=== PATIENT | male | born 1975 | race Caucasian/White ===

== ENCOUNTER 2020-07-05 12:22 | Inpatient (IN) | payer OTHER ==
[2020-07-05 13:08] VITALS: BMI 21.2
[2020-07-05] MEDS ORDERED: P-EPHED 60MG/TRIPROLIDI 2.5MG TABLET PO PRN (17:49)
[2020-07-05] MEDS ORDERED: MAGNESIUM CITRATE 300 ML BOTTLE PO PRN (17:49)
[2020-07-05] MEDS ORDERED: MENTHOL/PHENOL 1 EACH UD MM PRN (17:49)
[2020-07-05] MEDS ORDERED: MAG HYDROX/AL HYDROX/SIMETH 30 ML UNIT-DOSE CUP PO PRN (17:49)
[2020-07-05] MEDS ORDERED: NICOTINE POLACRILEX 2 MG GUM BUC PRN (17:49)
[2020-07-05] MEDS ORDERED: METHOCARBAMOL 500 MG TABLET PO PRN (17:49)
[2020-07-05] MEDS ORDERED: BISMUTH SUBSALICYLATE 524 MG/30 ML UD PO PRN (17:49)
[2020-07-05] MEDS ORDERED: MAGNESIUM HYDROX 2400MG/30ML ORAL SUSPENSION 30 ML CUP PO PRN (17:49)
[2020-07-05] MEDS ORDERED: ACETAMINOPHEN 325 MG TABLET (FP) PO PRN ×2 (17:49)
[2020-07-05] MEDS ORDERED: IBUPROFEN 400 MG TABLET (FP) PO PRN (17:49)
[2020-07-05] MEDS ORDERED: cloNIDine HCL 0.1 MG TABLET PO PRN (17:51)
[2020-07-05] MEDS ORDERED: METHADONE HCL 10 MG TABLET (FOR DETOX USE ONLY) PO ONE (18:45)
[2020-07-05] MEDS ORDERED: METOPROLOL TARTRATE 50 MG TABLET (FP) PO ONE (19:20)
[2020-07-05] MEDS ORDERED: diphenhydrAMINE HCL 25 MG CAPSULE (FP) PO ONE (19:36)
[2020-07-05] MEDS: LABETALOL HCL 200 MG TABLET (FP) PO SCH (22:40)
[2020-07-05] MEDS: MYCOPHENOLATE MOFETIL 500 MG TABLET PO SCH (22:40)
[2020-07-05] MEDS: MELATONIN 5 MG TABLETS PO SCH (22:40)
[2020-07-05] MEDS: THIAMINE HCL 100 MG TABLET (FP) PO SCH (22:40)
[2020-07-06] MEDS ORDERED: cloNIDine HCL 0.1 MG TABLET PO ONE (07:11)
[2020-07-06] MEDS ORDERED: METHADONE HCL 5 MG TABLET (FOR DETOX USE ONLY) ONE (08:58)
[2020-07-06] MEDS ORDERED: METHADONE HCL 10 MG TABLET (FOR DETOX USE ONLY) ONE (08:58)
[2020-07-06] MEDS ORDERED: METHADONE (DETOX) 20 MG, METHADONE (DETOX) 5 MG PO ONE (10:00)
[2020-07-06] MEDS: PRENATAL VITAMINS W/ FOLIC ACID TABLET (FP) PO SCH (10:17)
[2020-07-06] MEDS: LABETALOL HCL 200 MG TABLET (FP) PO SCH ×2 (10:18→21:03)
[2020-07-06] MEDS: MYCOPHENOLATE MOFETIL 500 MG TABLET PO SCH ×2 (10:18→21:04)
[2020-07-06] MEDS: NICOTINE 21 MG/24 HOURS TOPICAL PATCH TD SCH (10:21)
[2020-07-06 11:36] LABS: HEMATOCRIT 40.3 % (35.4-49); HEMOGLOBIN 13.1 GM/dL (11.7-16.9); MCH 28.1 pg (25.7-33.7); MCHC 32.5 g/dl (32.0-35.9); MEAN CELL VOLUME 86.5 fl (80-96); MEAN PLT VOLUME 9.9 fl (7.5-11.1); PLATELET COUNT 212 K/MM3 (134-434); RBC 4.65 M/mm3 (4.00-5.60); RDW 15.4 % (11.9-15.9); WHITE BLOOD COUNT 6.2 K/mm3 (4.0-10.0)
[2020-07-06 11:40] LABS: POTASSIUM 4.2 mmol/L (3.5-5.1)
[2020-07-06 11:53] LABS: CALCIUM 8.7 mg/dL (8.5-10.1)
[2020-07-06 11:54] LABS: ALBUMIN 3.5 g/dl (3.4-5.0); BLOOD UREA NITROGEN 19.8 mg/dL (7-18)
[2020-07-06 11:58] LABS: BILIRUBIN,TOTAL 0.8 mg/dL (0.2-1); TOT PROT 6.9 g/dl (6.4-8.2)
[2020-07-06] MEDS ORDERED: diphenhydrAMINE HCL 25 MG CAPSULE (FP) PO ONE (20:48)
[2020-07-06] MEDS: THIAMINE HCL 100 MG TABLET (FP) PO SCH (21:04)
[2020-07-06] MEDS: MELATONIN 5 MG TABLETS PO SCH (21:04)
[2020-07-07] MEDS ORDERED: METHADONE HCL 10 MG TABLET (FOR DETOX USE ONLY) PO ONE (10:00)
[2020-07-07] MEDS: MYCOPHENOLATE MOFETIL 500 MG TABLET PO SCH (10:17)
[2020-07-07] MEDS: PRENATAL VITAMINS W/ FOLIC ACID TABLET (FP) PO SCH (10:17)
[2020-07-07] MEDS: LABETALOL HCL 200 MG TABLET (FP) PO SCH (10:17)
[2020-07-07] MEDS: NICOTINE 21 MG/24 HOURS TOPICAL PATCH TD SCH (10:20)
[2020-07-07] MEDS ORDERED: diazePAM 5 MG TABLET PO PRN (11:15)
[2020-07-07] MEDS ORDERED: MELATONIN 5 MG TABLETS PO SCH (11:19)
[2020-07-07 17:29] VITALS: BP 114/75; PULSE 60; TEMP 98.7
[2020-07-08] MEDS ORDERED: METHADONE (DETOX) 10 MG, METHADONE (DETOX) 5 MG PO ONE (10:00)
[2020-07-09] MEDS ORDERED: METHADONE HCL 10 MG TABLET (FOR DETOX USE ONLY) PO ONE (10:00)
[2020-07-10] MEDS ORDERED: METHADONE HCL 5 MG TABLET (FOR DETOX USE ONLY) PO ONE (06:00)
== END 2020-07-07 19:26 | disposition left against medical advice (07) | DRG 894 ==
LOC: YASAS 12:22 → Y3N 18:14
PROVIDERS: ADMIT Allergy & Immunology; ATTEND Allergy & Immunology
PROC: HZ2ZZZZ Detoxification Services for Substance Abuse Treatment (ICD-10-PCS; principal; 2020-07-05)
DX: F11.23 Opioid dependence with withdrawal (principal); K62.5 Hemorrhage of anus and rectum; F12.10 Cannabis abuse, uncomplicated; F17.210 Nicotine dependence, cigarettes, uncomplicated; I10 Essential (primary) hypertension; M32.9 Systemic lupus erythematosus, unspecified; N18.1 Chronic kidney disease, stage 1; Z98.890 Other specified postprocedural states; Z91.013 Allergy to seafood
CPT/HCPCS: 36415; 80053; 85027; 86780; C9803; J0735; J7517; U0003

== ENCOUNTER 2020-10-01 19:33 | Inpatient (IN) | payer OTHER ==
[2020-10-01 20:17] VITALS: BMI 20.2
[2020-10-02] MEDS ORDERED: BISMUTH SUBSALICYLATE 524 MG/30 ML UD PO PRN (00:35)
[2020-10-02] MEDS ORDERED: MAGNESIUM HYDROX 2400MG/30ML ORAL SUSPENSION 30 ML CUP PO PRN (00:35)
[2020-10-02] MEDS ORDERED: ONDANSETRON *ODT* 4 MG TABLET SL PRN (00:35)
[2020-10-02] MEDS ORDERED: METHADONE HCL 10 MG TABLET (FOR DETOX USE ONLY) PO ONE (00:35)
[2020-10-02] MEDS ORDERED: MENTHOL/PHENOL 1 EACH UD MM PRN (00:35)
[2020-10-02] MEDS ORDERED: MAG HYDROX/AL HYDROX/SIMETH 30 ML UNIT-DOSE CUP PO PRN (00:35)
[2020-10-02] MEDS ORDERED: ACETAMINOPHEN 325 MG TABLET (FP) PO PRN ×2 (00:35)
[2020-10-02] MEDS ORDERED: NICOTINE POLACRILEX 2 MG GUM BUC PRN (00:35)
[2020-10-02] MEDS ORDERED: MAGNESIUM CITRATE 300 ML BOTTLE PO PRN (00:35)
[2020-10-02] MEDS ORDERED: cloNIDine HCL 0.1 MG TABLET PO PRN (00:35)
[2020-10-02] MEDS ORDERED: IBUPROFEN 400 MG TABLET (FP) PO PRN (00:35)
[2020-10-02] MEDS ORDERED: METHADONE HCL 10 MG TABLET (FOR DETOX USE ONLY) ONE (04:27)
[2020-10-02 10:57] LABS: HEMATOCRIT 37.3 % (35.4-49); HEMOGLOBIN 12.4 GM/dL (11.7-16.9); MCH 29.2 pg (25.7-33.7); MCHC 33.1 g/dl (32.0-35.9); MEAN PLT VOLUME 9.7 fl (7.5-11.1); PLATELET COUNT 156 K/MM3 (134-434); RBC 4.24 M/mm3 (4.00-5.60); RDW 14.7 % (11.9-15.9); WHITE BLOOD COUNT 7.1 K/mm3 (4.0-10.0)
[2020-10-02 11:12] LABS: CALCIUM 8.8 mg/dL (8.5-10.1)
[2020-10-02 11:13] LABS: ALBUMIN 3.2 g/dl (3.4-5.0); BLOOD UREA NITROGEN 24.3 mg/dL (7-18)
[2020-10-02 11:16] LABS: CREATININE 1.2 mg/dL (0.55-1.3)
[2020-10-02 11:18] LABS: BILIRUBIN,TOTAL 0.3 mg/dL (0.2-1); TOT PROT 6.3 g/dl (6.4-8.2)
[2020-10-02] MEDS: METHOCARBAMOL 500 MG TABLET PO PRN ×2 (12:49→23:18)
[2020-10-02] MEDS: PRENATAL VITAMINS W/ FOLIC ACID TABLET (FP) PO SCH (12:49)
[2020-10-02] MEDS: NICOTINE 21 MG/24 HOURS TOPICAL PATCH TD SCH (12:50)
[2020-10-02] MEDS ORDERED: IBUPROFEN 600 MG TABLET (FP) PO PRN (15:08)
[2020-10-02] MEDS: MELATONIN 5 MG TABLETS PO SCH (23:16)
[2020-10-02] MEDS: THIAMINE HCL 100 MG TABLET (FP) PO SCH (23:16)
[2020-10-02] MEDS: LABETALOL HCL 100 MG TABLET (FP) PO SCH (23:16)
[2020-10-03] MEDS ORDERED: METHADONE HCL 5 MG TABLET (FOR DETOX USE ONLY) ONE (08:59)
[2020-10-03] MEDS ORDERED: METHADONE HCL 10 MG TABLET (FOR DETOX USE ONLY) ONE (08:59)
[2020-10-03] MEDS: PRENATAL VITAMINS W/ FOLIC ACID TABLET (FP) PO SCH (09:21)
[2020-10-03] MEDS: LABETALOL HCL 100 MG TABLET (FP) PO SCH (09:21)
[2020-10-03] MEDS: NICOTINE 21 MG/24 HOURS TOPICAL PATCH TD SCH (09:22)
[2020-10-03] MEDS ORDERED: METHADONE (DETOX) 20 MG, METHADONE (DETOX) 5 MG PO ONE (10:00)
[2020-10-03] MEDS ORDERED: MYCOPHENOLATE MOFETIL 500 MG TABLET PO SCH (14:00)
[2020-10-03] MEDS: LIDOCAINE 5% TOPICAL PATCH TP SCH (14:12)
[2020-10-03] MEDS: METHOCARBAMOL 500 MG TABLET PO PRN ×2 (16:35→22:19)
[2020-10-03] MEDS: MELATONIN 5 MG TABLETS PO SCH (22:18)
[2020-10-03] MEDS: THIAMINE HCL 100 MG TABLET (FP) PO SCH (22:18)
[2020-10-03] MEDS: LABETALOL HCL 200 MG TABLET (FP) PO SCH (22:18)
[2020-10-03] MEDS: LIDOCAINE PATCH REMOVAL MC SCH (23:02)
[2020-10-04] MEDS ORDERED: METHADONE HCL 10 MG TABLET (FOR DETOX USE ONLY) PO ONE (10:00)
[2020-10-04] MEDS: LIDOCAINE 5% TOPICAL PATCH TP SCH (10:32)
[2020-10-04] MEDS: NICOTINE 21 MG/24 HOURS TOPICAL PATCH TD SCH (10:33)
[2020-10-04] MEDS: PRENATAL VITAMINS W/ FOLIC ACID TABLET (FP) PO SCH (10:33)
[2020-10-04] MEDS: LABETALOL HCL 200 MG TABLET (FP) PO SCH ×2 (10:33→22:17)
[2020-10-04] MEDS: METHOCARBAMOL 500 MG TABLET PO PRN ×2 (10:34→22:17)
[2020-10-04] MEDS: LIDOCAINE PATCH REMOVAL MC SCH (22:15)
[2020-10-04] MEDS: THIAMINE HCL 100 MG TABLET (FP) PO SCH (22:16)
[2020-10-04] MEDS: MELATONIN 5 MG TABLETS PO SCH (22:17)
[2020-10-05] MEDS ORDERED: METHADONE HCL 5 MG TABLET (FOR DETOX USE ONLY) ONE (08:58)
[2020-10-05] MEDS ORDERED: METHADONE HCL 10 MG TABLET (FOR DETOX USE ONLY) ONE (08:59)
[2020-10-05] MEDS ORDERED: METHADONE HCL 10 MG TABLET (FOR DETOX USE ONLY) PO ONE (09:38)
[2020-10-05] MEDS ORDERED: METHADONE (DETOX) 10 MG, METHADONE (DETOX) 5 MG PO ONE (10:00)
[2020-10-05 10:07] LABS: SARS-CoV-2 NAA Not Detected (Not Detected)
[2020-10-05] MEDS: PRENATAL VITAMINS W/ FOLIC ACID TABLET (FP) PO SCH (10:19)
[2020-10-05] MEDS: LABETALOL HCL 200 MG TABLET (FP) PO SCH ×2 (10:19→22:27)
[2020-10-05] MEDS: NICOTINE 21 MG/24 HOURS TOPICAL PATCH TD SCH (10:20)
[2020-10-05] MEDS: LIDOCAINE 5% TOPICAL PATCH TP SCH (10:21)
[2020-10-05] MEDS: METHOCARBAMOL 500 MG TABLET PO PRN (17:43)
[2020-10-05] MEDS: MELATONIN 5 MG TABLETS PO SCH (22:27)
[2020-10-05] MEDS: LIDOCAINE PATCH REMOVAL MC SCH (22:27)
[2020-10-05] MEDS: THIAMINE HCL 100 MG TABLET (FP) PO SCH (22:27)
[2020-10-06] MEDS: METHADONE HCL 5 MG TABLET (FOR DETOX USE ONLY) PO ONE ×2 (06:30→06:35)
[2020-10-06 06:32] VITALS: PULSE 52; TEMP 98
[2020-10-06 08:05] VITALS: BP 144/91
[2020-10-06] MEDS ORDERED: METHADONE HCL 10 MG TABLET (FOR DETOX USE ONLY) PO ONE (10:00)
[2020-10-07] MEDS ORDERED: METHADONE HCL 5 MG TABLET (FOR DETOX USE ONLY) PO ONE (06:00)
== END 2020-10-06 09:39 | disposition home or self-care (01) | DRG 897 ==
LOC: YASAS 19:33 → Y6N 10-02 12:18
PROVIDERS: ADMIT Allergy & Immunology; ATTEND Allergy & Immunology
PROC: HZ2ZZZZ Detoxification Services for Substance Abuse Treatment (ICD-10-PCS; principal; 2020-10-02)
DX: F11.23 Opioid dependence with withdrawal (principal); F17.210 Nicotine dependence, cigarettes, uncomplicated; I10 Essential (primary) hypertension; M32.9 Systemic lupus erythematosus, unspecified; M54.5 Low back pain; G89.29 Other chronic pain
CPT/HCPCS: 36415; 80053; 84520; 85027; 86780; 93005; 93010; C9803; J0735; U0003; U0005

== ENCOUNTER 2020-12-11 12:55 | Inpatient (IN) | payer OTHER ==
[2020-12-11 04:20] VITALS: BMI 21.4
[~2020-12-11 12:55] MED LIST: cloNIDine HCL 0.1 MG TABLET ONE; cloNIDine HCL 0.1 MG TABLET PO ONE
[2020-12-11] MEDS ORDERED: NICOTINE POLACRILEX 2 MG GUM BUC PRN (17:59)
[2020-12-11] MEDS ORDERED: BISMUTH SUBSALICYLATE 524 MG/30 ML PO PRN (17:59)
[2020-12-11] MEDS ORDERED: ONDANSETRON *ODT* 4 MG TABLET SL PRN (17:59)
[2020-12-11] MEDS ORDERED: cloNIDine HCL 0.1 MG TABLET PO PRN (17:59)
[2020-12-11] MEDS ORDERED: ACETAMINOPHEN 325 MG TABLET (FP) PO PRN ×2 (17:59)
[2020-12-11] MEDS ORDERED: MENTHOL/PHENOL 1 EACH UD MM PRN (17:59)
[2020-12-11] MEDS ORDERED: MAG HYDROX/AL HYDROX/SIMETH 30 ML UNIT-DOSE CUP PO PRN (17:59)
[2020-12-11] MEDS ORDERED: IBUPROFEN 400 MG TABLET (FP) PO PRN (17:59)
[2020-12-11] MEDS ORDERED: MAGNESIUM HYDROX 2400MG/30ML ORAL SUSPENSION 30 ML CUP PO PRN (17:59)
[2020-12-11] MEDS ORDERED: MAGNESIUM CITRATE 300 ML BOTTLE PO PRN (17:59)
[2020-12-11] MEDS ORDERED: METHOCARBAMOL 500 MG TABLET PO PRN (17:59)
[2020-12-11] MEDS ORDERED: METHADONE HCL 10 MG TABLET (FOR DETOX USE ONLY) PO ONE (19:00)
[2020-12-11] MEDS: NICOTINE 21 MG/24 HOURS TOPICAL PATCH TD SCH (19:24)
[2020-12-11] MEDS: hydrOXYzine PAMOATE 25 MG CAPSULE (FP) PO SCH ×2 (19:25→23:20)
[2020-12-11] MEDS: diazePAM 5 MG TABLET PO PRN (19:28)
[2020-12-11] MEDS: THIAMINE HCL 100 MG TABLET (FP) PO SCH (23:19)
[2020-12-11] MEDS: SULFAMETHOXAZOLE/TRIMETHOPRIM 800MG/160MG D.S. TABLET PO SCH (23:19)
[2020-12-11] MEDS: MELATONIN 5 MG TABLETS PO SCH (23:20)
[2020-12-12] MEDS: hydrOXYzine PAMOATE 25 MG CAPSULE (FP) PO SCH ×5 (07:11→21:38)
[2020-12-12] MEDS ORDERED: METHADONE HCL 10 MG TABLET (FOR DETOX USE ONLY) ONE (09:56)
[2020-12-12] MEDS ORDERED: METHADONE HCL 5 MG TABLET (FOR DETOX USE ONLY) ONE (09:56)
[2020-12-12] MEDS ORDERED: METHADONE (DETOX) 20 MG, METHADONE (DETOX) 5 MG PO ONE (10:00)
[2020-12-12] MEDS: SULFAMETHOXAZOLE/TRIMETHOPRIM 800MG/160MG D.S. TABLET PO SCH ×2 (10:34→21:38)
[2020-12-12] MEDS: PRENATAL VITAMINS W/ FOLIC ACID TABLET (FP) PO SCH (10:34)
[2020-12-12] MEDS: NICOTINE 21 MG/24 HOURS TOPICAL PATCH TD SCH (10:36)
[2020-12-12] MEDS: diazePAM 5 MG TABLET PO PRN ×2 (10:38→21:41)
[2020-12-12] MEDS: LABETALOL HCL 100 MG TABLET (FP) PO SCH (13:49)
[2020-12-12] MEDS: THIAMINE HCL 100 MG TABLET (FP) PO SCH (21:37)
[2020-12-12] MEDS: MELATONIN 5 MG TABLETS PO SCH (21:37)
[2020-12-12] MEDS: CALCIUM CARBONATE 650 MG TABLET PO SCH (21:38)
[2020-12-13] MEDS: hydrOXYzine PAMOATE 25 MG CAPSULE (FP) PO SCH ×5 (07:31→22:45)
[2020-12-13] MEDS ORDERED: METHADONE HCL 10 MG TABLET (FOR DETOX USE ONLY) PO ONE (10:00)
[2020-12-13] MEDS: CALCIUM CARBONATE 650 MG TABLET PO SCH ×2 (11:05→22:45)
[2020-12-13] MEDS: SULFAMETHOXAZOLE/TRIMETHOPRIM 800MG/160MG D.S. TABLET PO SCH ×2 (11:05→22:45)
[2020-12-13] MEDS: PRENATAL VITAMINS W/ FOLIC ACID TABLET (FP) PO SCH (11:05)
[2020-12-13] MEDS: NICOTINE 21 MG/24 HOURS TOPICAL PATCH TD SCH (11:06)
[2020-12-13] MEDS: LABETALOL HCL 100 MG TABLET (FP) PO SCH (11:07)
[2020-12-13 20:01] LABS: HEMATOCRIT 40.6 % (35.4-49); HEMOGLOBIN 13.4 GM/dL (11.7-16.9); MCH 28.2 pg (25.7-33.7); MCHC 32.9 g/dl (32.0-35.9); MEAN CELL VOLUME 85.6 fl (80-96); MEAN PLT VOLUME 9.2 fl (7.5-11.1); PLATELET COUNT 195 10^3/uL (134-434); RBC 4.74 M/mm3 (4.00-5.60); RDW 14.9 % (11.9-15.9); WHITE BLOOD COUNT 6.3 K/mm3 (4.0-10.0)
[2020-12-13 20:20] LABS: CALCIUM 8.7 mg/dL (8.5-10.1)
[2020-12-13 20:21] LABS: ALBUMIN 3.1 g/dl (3.4-5.0); BLOOD UREA NITROGEN 24.6 mg/dL (7-18)
[2020-12-13 20:24] LABS: CREATININE 1.3 mg/dL (0.55-1.3)
[2020-12-13 20:25] LABS: BILIRUBIN,TOTAL 0.3 mg/dL (0.2-1); TOT PROT 7.3 g/dl (6.4-8.2)
[2020-12-13] MEDS: THIAMINE HCL 100 MG TABLET (FP) PO SCH (22:45)
[2020-12-13] MEDS: MELATONIN 5 MG TABLETS PO SCH (22:45)
[2020-12-14] MEDS: MELATONIN 5 MG TABLETS PO SCH (00:10)
[2020-12-14] MEDS: hydrOXYzine PAMOATE 25 MG CAPSULE (FP) PO SCH ×3 (00:11→06:18)
[2020-12-14 09:39] VITALS: BP 108/68; PULSE 73; TEMP 96.4
[2020-12-14] MEDS ORDERED: METHADONE (DETOX) 10 MG, METHADONE (DETOX) 5 MG PO ONE (10:00)
[2020-12-15] MEDS ORDERED: METHADONE HCL 10 MG TABLET (FOR DETOX USE ONLY) PO ONE (10:00)
[2020-12-16] MEDS ORDERED: METHADONE HCL 5 MG TABLET (FOR DETOX USE ONLY) PO ONE (06:00)
== END 2020-12-14 09:28 | disposition left against medical advice (07) | DRG 894 ==
LOC: YASAS 12:55 → Y3N 18:00
PROVIDERS: ADMIT Allergy & Immunology; ATTEND Allergy & Immunology
PROC: HZ2ZZZZ Detoxification Services for Substance Abuse Treatment (ICD-10-PCS; principal; 2020-12-11)
DX: F11.23 Opioid dependence with withdrawal (principal); F17.210 Nicotine dependence, cigarettes, uncomplicated; I12.9 Hypertensive chronic kidney disease with stage 1 through stage 4 chronic kidney disease, or unspecified chronic kidney disease; N18.1 Chronic kidney disease, stage 1; J45.909 Unspecified asthma, uncomplicated; R74.01 Elevation of levels of liver transaminase levels; M32.9 Systemic lupus erythematosus, unspecified; R79.89 Other specified abnormal findings of blood chemistry; D64.9 Anemia, unspecified; E83.52 Hypercalcemia; R63.4 Abnormal weight loss; Z68.21 Body mass index [BMI] 21.0-21.9, adult; Z91.013 Allergy to seafood
CPT/HCPCS: 36415; 73610-TC-LT-FY; 73630-TC-LT; 80053; 84550; 85025; 85027; 85651; 86140; 86780; 93971-LT; J0735